=== PATIENT | male | born 1990 | race Caucasian/White ===

== ENCOUNTER 2025-05-20 08:33 | Emergency (ER) | payer MEDICAID ==
[2025-05-20 09:08] LABS: BASOPHILS ABSOLUTE AUTO 0.03 K/uL (0.00-0.10); BASOPHILS PERCENT AUTO 0.4 % (0.1-1.3); EOSINOPHILS PERCENT AUTO 0.0 % (0.0-5.4); IMMATURE GRAN ABSOLUTE AUTO 0.03 K/uL (0.00-0.23); IMMATURE GRAN PERCENT AUTO 0.4 % (0.0-0.7); LYMPHOCYTES ABSOLUTE AUTO 1.75 K/uL (0.8-3.3); LYMPHOCYTES PERCENT AUTO 24.5 % (11.4-47.7); MONOCYTES ABSOLUTE AUTO 0.43 K/uL (0.20-0.90); MONOCYTES PERCENT AUTO 6.0 % (3.3-12.6); NEUTROPHILS ABSOLUTE AUTO 4.90 K/uL (1.0-7.6); NEUTROPHILS PERCENT AUTO 68.7 % (40.0-78.1); PLATELET COUNT,PLT 242 K/uL (130-375); RED BLOOD CELL COUNT 4.72 M/uL (4.14-5.76); WHITE BLOOD CELL COUNT,WBC 7.1 K/uL (3.2-11.0)
[2025-05-20 09:16] LABS: EOSINOPHILS ABSOLUTE AUTO 0.00 K/uL (0.00-0.40)
[2025-05-20 09:31] LABS: A/G RATIO 0.7 (1.2-2.2); ALANINE AMINOTRANSFERASE,ALT 49 U/L (12-78); ASPARTATE AMNIOTRANSFERASE,AST 32 U/L (15-37); BILIRUBIN TOTAL 0.5 mg/dL (0.2-1.0); BLOOD UREA NITROGEN,BUN 11 mg/dL (7-18); CARBON DIOXIDE,CO2 28 mmol/L (21-32); CHLORIDE,CL 105 mmol/L (100-108); CREATININE 0.9 mg/dL (0.8-1.3); EST CRCL DRUG DOSING (CG) 123.35 mL/min; ESTIMATED GFR 113 mL/min (>60); GLUCOSE RANDOM 155 mg/dL (74-106); POTASSIUM,K 3.5 mmol/L (3.6-5.2); PROTEIN TOTAL,TP 7.7 g/dL (6.4-8.2); SODIUM,NA 139 mmol/L (140-148); TROPONIN I HIGH SENSITIVITY 7.1 pg/mL (<=60.3)
[2025-05-20 09:38] LABS: APPEARANCE,URINE CLEAR (CLEAR); GLUCOSE,URINE NEGATIVE (NEGATIVE); OCCULT BLOOD,URINE NEGATIVE (NEGATIVE)
[2025-05-20] MEDS: Ketorolac 15 MG/ML SDV IVPUSH ONE (09:59)
[2025-05-20] MEDS: Sodium Chloride 0.9% 10 ML Syringe FLUSH ONE (10:00)
[2025-05-20 10:01] LABS: SQUAMOUS EPITHELIAL CELLS,UR NOT SEEN /HPF; UROTHELIAL CELLS,URINE NOT SEEN /HPF
[2025-05-20] MEDS: Iopamidol 755 Mg/ML 100 ML Bottle IV SCH (10:56)
== END 2025-05-20 14:04 | disposition home or self-care (01) ==
LOC: JP.ED 08:33
DX: J44.1 Chronic obstructive pulmonary disease with (acute) exacerbation (principal); J90 Pleural effusion, not elsewhere classified; F17.210 Nicotine dependence, cigarettes, uncomplicated; Z88.5 Allergy status to narcotic agent
CPT/HCPCS: 36415; 71045; 71275; 80053; 81001; 83880; 84484; 85025; 85379; 86140; 93005; 96374; 99285; A9270; C8929; J1885; Q9967; 93010; 99284

== ENCOUNTER 2025-06-17 10:00 | Emergency (ER) | payer MEDICAID | END 2025-06-17 12:15 | disposition home or self-care (01) | LOC: JP.ED 10:00 | DX: J45.909 Unspecified asthma, uncomplicated (principal); F17.200 Nicotine dependence, unspecified, uncomplicated; Z88.5 Allergy status to narcotic agent | CPT/HCPCS: 94640; 99284; J7620; A9270-GY ==

== ENCOUNTER 2025-09-22 19:28 | Emergency (ER) | payer MEDICARE, MEDICAID ==
[2025-09-22] MEDS: Lidocaine 1% with EPINEPHrine 1:100,000 20 ML MDV INJECT ONE (21:12)
[2025-09-22] MEDS: Ketorolac 30 MG/ML SDV IVPUSH ONE (21:12)
[2025-09-22] MEDS: Ketorolac 30 MG/ML SDV IM ONE (21:22)
== END 2025-09-22 22:10 | disposition home or self-care (01) ==
LOC: JP.ED 19:28
DX: L02.416 Cutaneous abscess of left lower limb (principal); J44.89 Other specified chronic obstructive pulmonary disease; Z88.5 Allergy status to narcotic agent; Z88.6 Allergy status to analgesic agent
CPT/HCPCS: 10060; 96372; 99282; J2004; 99283; J1885